=== PATIENT | female | born 1980 | race American Indian/Alaskan Native ===

== ENCOUNTER 2019-06-22 00:32 | Emergency (ER) | payer SELFPAY ==
[2019-06-22 01:15] VITALS: BP 144/74
--- NOTE | 2019-06-22 04:58 | Emergency Department Report ---
ED Extremity Problem HPI - General Chief complaint: Extremity Injury, Lower Stated complaint: LEG AND FEET SWELLING Time Seen by Provider: 06/22/19 03:38 Source: patient Mode of arrival: Ambulatory Limitations: No Limitations - History of Present Illness Initial comments: Patient is a 38-year-old female presents the emergency room with complaints of chronic bilateral lower extremity edema which she feels like has slightly increased over the last 2 days. She has a cramping sensation in the legs. Patient states she has a past medical history of DVT in 2014 which she took Coumadin for at that time. She denies any recent long car or plane ride, recent surgery, recent immobilization, hormone or control use. She states that she sits at a desk often with her legs dangling down. she states that occasionally she wears compression stockings but not as often as she should. Patient does not report any shortness of breath, chest pain, hemoptysis, nausea, vomiting, cough, any other symptoms. - Related Data Previous Rx's Medication Instructions Recorded Last Taken Type Warfarin [Coumadin] 2.5 mg PO DAILY@1700 #30 tablet 04/24/15 Unknown Rx Warfarin [Coumadin] 10 mg PO DAILY@1700 #30 tablet 04/24/15 Unknown Rx traMADol [Ultram 50 MG tab] 50 mg PO Q4HR PRN #20 tablet 04/24/15 Unknown Rx Allergies Allergy/AdvReac Type Severity Reaction Status Date / Time amoxicillin Allergy Hives Verified 04/18/15 08:38 ED Review of Systems ROS: Stated complaint: LEG AND FEET SWELLING Other details as noted in HPI Comment: All other systems reviewed and negative ED Past Medical Hx - Past Medical History Previous Medical History?: Yes Hx HIV: No Additional medical history: Bilateral DVT's in 2015 - Surgical History Past Surgical History?: Yes Additional Surgical History: c-sections X 2 - Social History Smoking Status: Never Smoker - Medications Home Medications: Home Medications Medication Instructions Recorded Confirmed Last Taken Type Warfarin [Coumadin] 2.5 mg PO DAILY@1700 #30 tablet 04/24/15 Unknown Rx Warfarin [Coumadin] 10 mg PO DAILY@1700 #30 tablet 04/24/15 Unknown Rx traMADol [Ultram 50 MG tab] 50 mg PO Q4HR PRN #20 tablet 04/24/15 Unknown Rx ED Physical Exam - General Limitations: No Limitations General appearance: alert, in no apparent distress - Head Head exam: Present: atraumatic, normocephalic - Eye Eye exam: Present: normal appearance - ENT ENT exam: Present: mucous membranes moist - Respiratory Respiratory exam: Present: normal lung sounds bilaterally. Absent: respiratory distress, wheezes, rales, rhonchi, stridor, chest wall tenderness, accessory muscle use, decreased breath sounds, prolonged expiratory - Cardiovascular Cardiovascular Exam: Present: regular rate, normal rhythm, normal heart sounds. Absent: systolic murmur, diastolic murmur, rubs, gallop - Extremities Exam Extremities exam: Present: other (non pitting edema of the bilateral LE which is equal on both sides, no erythema, no increased warmth, neurovascularly intact) - Neurological Exam Neurological exam: Present: alert, oriented X3 - Psychiatric Psychiatric exam: Present: normal affect, normal mood - Skin Skin exam: Present: warm, dry, intact ED Course Vital Signs 06/22/19 00:36 Temperature 97.7 F Pulse Rate 89 Respiratory 18 Rate Blood Pressure 144/74 O2 Sat by Pulse 100 Oximetry ED Medical Decision Making - Radiology Data Radiology results: report reviewed DUPLEX DOPPLER LOWER EXTREMITY VEINS, BILATERAL INDICATION / CLINICAL INFORMATION: Bilateral LE swelling and pain. Lower [place] he pain and swelling. TECHNIQUE: Duplex doppler imaging was performed through the veins of both lower extremities using venous compression and other maneuvers. COMPARISON: None available. FINDINGS: Right Common Femoral vein: Negative. Right Femoral vein: Negative. Right Popliteal vein: Negative. Right Calf veins: Negative. Left Common Femoral vein: Negative. Left Femoral vein: Negative. Left Popliteal vein: Negative. Left Calf veins: Negative. Additional findings: Left lower extremity subcutaneous edema.. IMPRESSION: 1. No sonographic evidence for DVT in either lower extremity. Signer Name: Geovani Mc MD Signed: 06/22/2019 4:54 AM Workstation Name: [id number] Transcribed By: BC Dictated By: Geovani Mc MD Electronically Authenticated By: Geovani Mc MD Signed Date/Time: 06/22/19 0454 - Medical Decision Making Patient is a 38-year-old female presents the emergency room with complaints of chronic bilateral lower extremity edema which she feels like has slightly increased over the last 2 days. She has a cramping sensation in the legs. Patient states she has a past medical history of DVT in 2014 which she took Coumadin for at that time. She denies any recent long car or plane ride, recent surgery, recent immobilization, hormone or control use. She states that she sits at a desk often with her legs dangling down. she states that occasionally she wears compression stockings but not as often as she should. Patient does not report any shortness of breath, chest pain, hemoptysis, nausea, vomiting, cough, any other symptoms. VSS. on exam:non pitting edema of the bilateral LE which is equal on both sides, no erythema, no increased warmth, neurovascularly intact. US BLE: 1. No sonographic evidence for DVT in either lower extremity. discussed with pt that we would need to do blood work to r/o any kidney or liver dysfunction. I was informed by nurse that microbiological laboratory technician had difficulty drawing blood and the lab sent someone else to draw it. I was then in formed by nurse that pt eloped prior to having her blood drawn Critical care attestation.: If time is entered above; I have spent that time in minutes in the direct care of this critically ill patient, excluding procedure time. ED Disposition Clinical Impression: Leg swelling Disposition: Z- ELOPED Is pt being admited?: No Does the pt Need Aspirin: No Condition: Undetermined Referrals: PRIMARY CARE, [Primary Care Provider] - 3-5 Days
== END 2019-06-22 06:59 | disposition left against medical advice (07) ==
LOC: ED 00:32
DX: R60.0 Localized edema (principal); Z86.718 Personal history of other venous thrombosis and embolism; Z79.899 Other long term (current) drug therapy; Z88.1 Allergy status to other antibiotic agents
CPT/HCPCS: 93970